=== PATIENT | male | born 1995 | race Two or more races ===

== ENCOUNTER → 2024-07-13 15:00 | Emergency (ER) | payer BC, SELFPAY ==
[2024-07-13 15:10] VITALS: BP 137/88
--- NOTE | 2024-07-13 15:14 | ED.GENMED ---
ED Provider Triage
<Jama Vega PA-C - Last Filed: 07/13/24 15:15>
-
Patient seen by provider in Triage?: Seen in Triage
Attestation: A medical screening examination has been initiated by a qualified medical provider. Based on the assessment performed at this time, it has been determined that an emergent medical condition may exist and the patient has been informed
that further medical evaluation and possible additional diagnostic testing may be needed.
HPI: 29-year-old male presents to the emergency department for evaluation of a scalp laceration sustained running large metal strap/ratchet holding equipment on a truck snapped and struck him in the head. No LOC or headaches at this time. Does not
take anticoagulants. Last tetanus was approximately 2 to 3 years ago when he emigrated from [place]
GENERAL: Alert , in no apparent distress
EYE: No visual abnormalities.
NECK: Trachea midline
ENT: No visible abnormalities.
LUNGS: No acute respiratory distress
NEUROLOGICAL: Alert and oriented
SKIN: Skin intact. No visible changes.
MUSCULOSKELETAL: Moving extremities normally
PSYCH: Normal and appropriate interaction.
A/P: No indication for CT of the head at this time, tetanus up-to-date. Will need lack repair
This is a medical evaluation conducted in person to initiate diagnostic evaluation and provide initial therapeutics. Please see further documentation by the treating clinician.
History of Present Illness
<Jama Vega PA-C - Last Filed: 07/13/24 15:15>
General
Chief Complaint: Head Injury
Time Seen by Provider: 07/13/24 16:12
<Hamlet Rothman Jr., PA-C - Last Filed: 07/13/24 17:22>
General
Source: patient
Exam Limitations: none
Nursing documentation reviewed up to this point in time: agreed with
History of Present Illness
History of Present Illness:
29-year-old male presenting to the emergency department today with concerns of a laceration to his left side of forehead after being hit by a metal buckle while at work. He was not wearing a helmet. Denies any loss of consciousness numbness
weakness nausea vomiting dizziness. He is not on blood thinners.
Review of Systems
<Hamlet Rothman Jr., PA-C - Last Filed: 07/13/24 17:22>
Review of Systems
Allergies reviewed?: Yes
All Other Systems: ROS reviewed and negative except as documented in HPI and ROS
Phy Exam
<Hamlet Rothman Jr., PA-C - Last Filed: 07/13/24 17:22>
Physical Exam
Physical Exam:
GENERAL: Alert , in no apparent distress
EYE: pupils equal and reactive
NECK: Supple, no significant adenopathy.
ENT: 3 cm laceration to the left frontal scalp subcutaneous in depth. o/p clr, mmm.
CARDIAC: Regular rate and rhythm .
LUNGS: Clear breath sounds bilaterally, no acute respiratory distress, no wheezes/rales/rhonchi
ABDOMEN: Soft, without focal tenderness, no r/g, no cvat
NEUROLOGICAL: Alert and oriented, no focal neuro deficits
SKIN: Warm and dry, skin intact.
MUSCULOSKELETAL: No edema, well perfused.
PSYCH: Normal and appropriate interaction.
Course
<Jama Vega PA-C - Last Filed: 07/13/24 15:15>
Vital Signs
Initial and Last Documented VS:
Initial Vital Signs
Temp Pulse Resp BP Pulse Ox
98.2 F 89 18 137/88 100
07/13/24 15:10 07/13/24 15:10 07/13/24 15:10 07/13/24 15:10 07/13/24 15:10
Last Documented Vital Signs
Temp Pulse Resp BP Pulse Ox
98.2 F 84 18 137/88 100
07/13/24 15:10 07/13/24 15:10 07/13/24 15:10 07/13/24 15:10 07/13/24 15:10
<Hamlet Rothman Jr., PA-C - Last Filed: 07/13/24 17:22>
Vital Signs
Initial and Last Documented VS:
Initial Vital Signs
Temp Pulse Resp BP Pulse Ox
98.2 F 89 18 137/88 100
07/13/24 15:10 07/13/24 15:10 07/13/24 15:10 07/13/24 15:10 07/13/24 15:10
Last Documented Vital Signs
Temp Pulse Resp BP Pulse Ox
98.2 F 84 18 137/88 100
07/13/24 15:10 07/13/24 15:10 07/13/24 15:10 07/13/24 15:10 07/13/24 15:10
Procedures
<Hamlet Rothman Jr., PA-C - Last Filed: 07/13/24 17:22>
Laceration Closure
Left Anterior Scalp:
Status of Wound: clean
Size of Wound in cm: 3
Description of Wound Edges: sharp
Preparation: cleaned with saline
Anesthesia: 1% Lidocaine with epi
Revision/Debridement: routine- no revision
Wound exploration: explored to base- no FB
Skin Closure Material: skin yamila
Number of sutures: 3
<Hamlet Rothman Jr., PA-C - Last Filed: 07/13/24 17:22>
MDM/Problems Addressed
MDM/Problems Addressed:
29-year-old male presenting to the emergency department after hitting his left scalp at work on a piece of metal. This caused a 3 cm laceration that was cleaned thoroughly and closed with 3 yamila. Otherwise no loss of consciousness no vomiting
no neurologic symptoms. No evidence of significant internal injury or intracranial emergency. Otherwise stable for discharge return precautions given. Advised for follow-up in 7 days for staple removal
<Hamlet Rothman Jr., PA-C - Last Filed: 07/13/24 17:22>
*Critical Care Note
Total Time (30-74mins, 75-104mins- exclusive of procedures): Not Applicable
ED Attending Note
<Jama Vega PA-C - Last Filed: 07/13/24 15:15>
-
Portions of this chart may have been created with voice recognition software.� Occasional wrong word or��sound alike� substitutions may have occurred due to the inherent limitations of voice recognition software.
Discharge Plan
Departure
Patient Disposition: Home (Routine Discharge)
Date of Disposition: 07/13/24
Time of Disposition: 17:21
Patient with high blood pressure during this ER visit?: No
Condition: Good
Covid-19: Not Applicable
Discharge Problem:
Laceration of scalp
Instructions: Laceration Repair With [facility] ([place])
Referrals:
NONE,* [Family Provider] -
Activity Restrictions/Additional Instructions:
You came to the emergency department today with concerns of a laceration to your scalp. This was closed with yamila. Please keep the area clean covered and follow-up in 7 days for staple removal. Return to the emergency department for any
worsening, new or concerning symptoms.
Interventions
Interventions:
*Risk Screen - Suicide Last Done: 07/13/24 15:10
*Neglect/Abuse Screening Last Done: 07/13/24 15:10
*ED COVID-19 Vaccine History Last Done: 07/13/24 15:15
Discharge Date and Time
Print Language: ALBANIAN
== END | disposition home or self-care (01) ==
LOC: EMR 15:00
PROVIDERS: EMERGENCY PHYSICIAN Student in an Organized Health Care Education/Training Program
DX: S01.01XA Laceration without foreign body of scalp, initial encounter (principal); W22.8XXA Striking against or struck by other objects, initial encounter
CPT/HCPCS: 99282; 12002